=== PATIENT | female | born 1945 | race Caucasian/White ===

== ENCOUNTER 2017-09-28 15:29 | Outpatient (CLI) | payer MEDICARE, OTHER | END 2017-09-28 15:30 | disposition home or self-care (01) | LOC: BICMAMMO 15:29 | PROVIDERS: ATTEND Physician Assistant | DX: Z12.31 Encounter for screening mammogram for malignant neoplasm of breast (principal) | CPT/HCPCS: 77063; 77066; 77067; G0279 ==

== ENCOUNTER 2018-03-13 14:11 | Outpatient (CLI) | payer MEDICARE, OTHER ==
[2018-03-13] MEDS ORDERED: Gadobenate Dimeglumine 529 MG/1 ML (20ML VIAL) ONE (14:28)
--- NOTE | 2018-03-13 15:56 | MRI ---
PRE AND POSTCONTRAST ENHANCED MRI IMAGES OF BRAIN 03/13/18 HISTORY: Patient with meningioma. One year followup. D33.2. Multiplanar and multisequence pre and postcontrast enhanced MRI images of brain obtained. Comparison made to previous exam from 03/21/17. Images demonstrate extra-axial lesions seen in the right frontal region measuring 2.3 x 2.4 cm. This has not significantly changed since the previous comparison exam. There is also a left posterior pilar a dural based mass measuring 19 x 17 mm. This lesion is just medial and superior to the left transver se sinus and appears to extend into the left transverse sinus. Overall, MRI appearance is not signifi cantly changed. No significant interval growth seen since the previous comparison MRI from one year [facility]. IMPRESSION: Dural based right frontal and left posterior fossa dural based enhancing masses, most compatible with meningiomas. These appear to be stable. POS: [facility]
== END 2018-03-13 14:12 | disposition home or self-care (01) ==
LOC: TBSIIMAG 14:11
PROVIDERS: ATTEND Surgery
DX: D33.2 Benign neoplasm of brain, unspecified (principal); G93.9 Disorder of brain, unspecified
CPT/HCPCS: 70553; 82565; A9579

== ENCOUNTER 2020-04-15 08:33 | Outpatient (CLI) | payer MEDICARE, OTHER ==
--- NOTE | 2020-04-15 10:14 | MRI ---
EXAM: MRI of the brain without and with contrast HISTORY: Brain meningiomas COMPARISON: 03/13/2018 TECHNIQUE: Multiplanar multisequence MR images were obtained of the brain without and with IV contras t. FINDINGS: There is a stable homogeneously enhancing lobulated mass adjacent to the left sigmoid sinus/transvers e sinus measuring 2.4 cm in greatest dimension. This appears extra-axial and most likely represents a meningioma. There is a stable mass near the right frontal vertex with susceptibility artifact likely secondary to calcification. This mass demonstrates only enhancement around the periphery. This measures 2.2 cm in greatest dimension. No restricted diffusion. There are scattered foci of high T2/FLAIR signal in the subcortical and periventricular white matter, likely secondary to small vessel ischemic disease. No hydronephrosis. No extra-axial fluid collection or intracranial hemorrhage. The expected flow voids are present. Corpus callosum, pituitary, and craniocervical junction are within normal limits. The calvarium and overlying soft tissues are unremarkable. The paranasal sinuses and mastoid air cells are well aerated. IMPRESSION: Stable vertex and the left posterior fossa meningiomas
== END 2020-04-15 08:34 | disposition home or self-care (01) ==
LOC: TBSIIMAG 08:33
PROVIDERS: ATTEND Surgery
DX: D32.0 Benign neoplasm of cerebral meninges (principal)
CPT/HCPCS: 70553; 82565